=== PATIENT | female | born 1995 | race African-American/Black ===

== ENCOUNTER 2019-04-23 15:41 | Inpatient (IN) ==
[2019-04-23] MEDS ORDERED: ONDANSETRON 4 MG/2 ML VIAL IV PRN (16:50)
[2019-04-23] MEDS ORDERED: OXYTOCIN/LR 20 UNIT/1,000 ML BAG IV SCH (17:00)
[2019-04-23 17:13] LABS: Basophils % 0.1 % (0.0-0.8); Eosinophils # 0.1 10*3/uL (0.0-0.87); Eosinophils % 0.7 % (0.00-10.9); Hematocrit 37.6 VOL% (35.7-47.0); Hemoglobin 12.5 GM/DL (12.0-16.0); Immature Granulocytes % 0.8 %; Immature Granulocytes Absolute 0.06 #; Lymphocytes # 1.3 10*3/uL (1.4-4.0); Lymphocytes % 16.4 % (21.3-54.2); Mean Corpuscular HGB Conc 33.2 GM/DL (32-36); Mean Corpuscular Volume 90.2 FL (87-102); Mean Platelet Volume 10.7 FL (9.6-12.0); Monocytes % 7.2 % (1.7-12.7); Neutrophils % 74.8 % (38.7-73.9); Platelet Count 243 T/CUMM (130-400); Red Blood Count 4.17 MC/CUMM (3.8-5.5); Red Cell Distribution Width 13.7 % (9.3-17.3); White Blood Count 7.6 T/CUMM (4-12)
[2019-04-23] MEDS ORDERED: PENICILLIN G POTASSIUM INJ 6,000,000 UNIT in SODIUM CHLORIDE 0.9% 100 ML IV ONE (17:28)
[2019-04-23 17:33] LABS: Alanine Aminotransferase 12 U/L (13-56); Albumin 2.7 G/DL (3.4-5.0); Alkaline Phosphatase 107 U/L (45-117); Aspartate Amino Transferase 10 U/L (0-37); Bilirubin,Total < 0.39 MG/DL (0.2-1.0); Blood Urea Nitrogen 4 MG/DL (7-18); Estimated Glom Filtration Rate 154 ML/MIN; Glucose 121 MG/DL (74-106); Osmolality,Calculated 270.8 MOS/KG (273-304); Total Protein 7.1 G/DL (6.4-8.3)
[2019-04-23] MEDS: LACTATED RINGERS 1,000 ML IV SCH (18:07)
[2019-04-23] MEDS: PENICILLIN G POTASSIUM INJ 3,000,000 UNIT in SODIUM CHLORIDE 0.9% 100 ML IV SCH (22:46)
[2019-04-24] MEDS: LACTATED RINGERS 1,000 ML IV SCH (00:31)
[2019-04-24] MEDS: PENICILLIN G POTASSIUM INJ 3,000,000 UNIT in SODIUM CHLORIDE 0.9% 100 ML IV SCH (03:26)
[2019-04-24] MEDS ORDERED: BUTORPHANOL 2 MG/ML VIAL IV PRN (03:55)
[2019-04-24] MEDS ORDERED: FAMOTIDINE 20 MG/2 ML VIAL IV ONE (05:37)
[2019-04-24] MEDS ORDERED: CITRIC ACID/SODIUM CITRATE 30 ML UDCUP PO ONE (05:37)
[2019-04-24] MEDS ORDERED: ONDANSETRON 4 MG/2 ML VIAL IV ONE (05:37)
[2019-04-24] MEDS ORDERED: ePHEDrine 50 MG/ML AMP IV PRN (05:37)
[2019-04-24] MEDS ORDERED: diphenhydrAMINE 50 MG/1 ML VIAL IV PRN (05:37)
[2019-04-24] MEDS ORDERED: NALOXONE 0.4 MG/ML VIAL IV PRN (05:37)
[2019-04-24] MEDS ORDERED: LACTATED RINGERS 1,000 ML IV ONE (05:37)
[2019-04-24] MEDS ORDERED: fentaNYL 2 MCG/ROPIV 0.2% EPID 100 ML EPIDURAL SCH (06:00)
[2019-04-24] MEDS ORDERED: LACTATED RINGERS 1,000 ML IV SCH (06:00)
[2019-04-24] MEDS ORDERED: OXYTOCIN/LR 20 UNIT/1,000 ML BAG IV ONE (06:03)
[2019-04-24] MEDS ORDERED: METHYLERGONOVINE 0.2 MG/1 ML AMP ONE (06:03)
[2019-04-24] MEDS ORDERED: miSOPROStoL 200 MCG TABLET ONE (06:03)
[2019-04-24] MEDS ORDERED: TRANEXAMIC ACID 1,000 MG/10 ML VIAL ONE (06:03)
[2019-04-24] MEDS ORDERED: SODIUM CHLORIDE 0.9% 100 ML IV ONE (06:04)
[2019-04-24] MEDS ORDERED: CARBOPROST TROMETHAMINE 250 MCG/ML AMP IM ONE (06:04)
[2019-04-24] MEDS ORDERED: KETOROLAC 30 MG/1 ML VIAL IV SCH (06:30)
[2019-04-24] MEDS ORDERED: LANOLIN 50% CREAM 0.3 OZ TUBE TOP PRN (08:23)
[2019-04-24] MEDS ORDERED: BISACODYL 10 MG SUPP RECTAL PRN (08:23)
[2019-04-24] MEDS ORDERED: ACETAMINOPHEN 325 MG TABLET PO PRN (08:23)
[2019-04-24] MEDS ORDERED: WITCH HAZEL PADS 100/JAR TOP PRN (08:23)
[2019-04-24] MEDS ORDERED: MEASLES/MUMPS/RUBELLA VACCINE 0.5 ML VIAL SUBCUT ONE (08:23)
[2019-04-24] MEDS ORDERED: HYDROCORTISONE 2.5% RECTAL CREAM 30 GM TUBE TOP PRN (08:23)
[2019-04-24] MEDS ORDERED: BENZOCAINE 20%/MENTHOL 0.5% SPRAY 56 GM CAN TOP PRN (08:23)
[2019-04-24] MEDS ORDERED: RHO(D) IMMUNE GLOBULIN 300 MCG SYRINGE IM ONE (08:23)
[2019-04-24] MEDS ORDERED: DIPH/TET/ACEL PERT BOOSTER VACCINE 0.5 ML VIAL IM ONE (08:23)
[2019-04-24] MEDS ORDERED: KETOROLAC 30 MG/1 ML VIAL IV ONE (08:36)
[2019-04-24] MEDS: KETOROLAC 30 MG/1 ML VIAL IV SCH ×3 (08:41→21:35)
[2019-04-25] MEDS: KETOROLAC 30 MG/1 ML VIAL IV SCH (03:38)
[2019-04-25] MEDS: ACETAMINOPHEN 500 MG TABLET PO PRN ×2 (04:27→18:35)
[2019-04-25 05:34] LABS: Basophils % 0.4 % (0.0-0.8); Eosinophils # 0.1 10*3/uL (0.0-0.87); Eosinophils % 1.1 % (0.00-10.9); Hematocrit 35.1 VOL% (35.7-47.0); Hemoglobin 11.8 GM/DL (12.0-16.0); Immature Granulocytes % 0.4 %; Immature Granulocytes Absolute 0.03 #; Lymphocytes # 1.7 10*3/uL (1.4-4.0); Lymphocytes % 20.3 % (21.3-54.2); Mean Corpuscular HGB Conc 33.6 GM/DL (32-36); Mean Corpuscular Volume 90.7 FL (87-102); Mean Platelet Volume 10.8 FL (9.6-12.0); Monocytes % 5.6 % (1.7-12.7); Neutrophils % 72.2 % (38.7-73.9); Platelet Count 196 T/CUMM (130-400); Red Blood Count 3.87 MC/CUMM (3.8-5.5); Red Cell Distribution Width 13.9 % (9.3-17.3); White Blood Count 8.5 T/CUMM (4-12)
[2019-04-25] MEDS: DOCUSATE SODIUM 100 MG CAPSULE PO SCH ×3 (09:45→19:21)
[2019-04-25] MEDS: IBUPROFEN 800 MG TABLET PO SCH ×2 (12:17→19:21)
[2019-04-26] MEDS: ACETAMINOPHEN 500 MG TABLET PO PRN ×2 (00:16→07:41)
[2019-04-26] MEDS: DOCUSATE SODIUM 100 MG CAPSULE PO SCH ×2 (00:18→08:42)
[2019-04-26] MEDS: IBUPROFEN 800 MG TABLET PO SCH ×2 (03:18→12:40)
[2019-04-26 07:37] VITALS: BP 121/62
== END 2019-04-26 12:42 | disposition home or self-care (01) | DRG 807 ==
LOC: N.LDOUT 15:41 → N.LD 15:45 → N.OB 04-24 09:31
PROVIDERS: ADMIT Obstetrics & Gynecology; ATTEND Obstetrics & Gynecology